=== PATIENT | male | born 1990 | race Caucasian/White ===

== ENCOUNTER 2022-08-28 21:09 | Emergency (ER) | payer SELFPAY ==
[~2022-08-28] VITALS: Ht 175.3 cm; Wt 78.0 kg
[2022-08-28 22:42] VITALS: BP 171/111
[2022-08-28] MEDS ORDERED: SODIUM CHLORIDE 0.9% 1,000 ML IV ONE (23:00)
== END 2022-08-28 23:17 | disposition left against medical advice (07) ==
LOC: ER 21:09
DX: Z53.21 Procedure and treatment not carried out due to patient leaving prior to being seen by health care provider (principal); R00.0 Tachycardia, unspecified; T65.91XA Toxic effect of unspecified substance, accidental (unintentional), initial encounter
CPT/HCPCS: 93005; J7030; 99283